=== PATIENT | male | born 1975 | race Hispanic/Latino ===

== ENCOUNTER 2022-08-12 10:45 | Day surgery (SDC) | payer BC ==
[2022-08-12] VITALS (12 sets, daily range): BP systolic 114–157; BP diastolic 76–91
[~2022-08-12] VITALS: Ht 177.8 cm; Wt 120.2 kg
[2022-08-12] MEDS ORDERED: LIDOCAINE PF 100MG/5ML (2%) SYRINGE 5ML ONE (12:02)
[2022-08-12] MEDS ORDERED: SUCCINYLCHOLINE CHLORIDE 20 MG/ML 10 ML VIAL ONE (12:02)
[2022-08-12] MEDS ORDERED: MIDAZOLAM HCL 1 MG/ML 2ML VIAL ONE (12:02)
[2022-08-12] MEDS ORDERED: ONDANSETRON 4MG INJ ONE (12:02)
[2022-08-12] MEDS ORDERED: DEXAMETHASONE SOD PHOSPHATE 10MG/ML 1ML VIAL ONE (12:02)
[2022-08-12] MEDS ORDERED: NEOSTIGMINE 5MG/5ML SYR IV ONE (12:03)
[2022-08-12] MEDS ORDERED: PROPOFOL 10 MG/ML 20ML VIAL IV ONE ×2 (12:03→13:09)
[2022-08-12] MEDS ORDERED: GLYCOPYRROLATE 1 MG/5 ML SYRINGE ONE (12:03)
[2022-08-12] MEDS ORDERED: FENTANYL CITRATE PF 50 MCG/1 ML 2ML VIAL ONE (12:03)
[2022-08-12] MEDS ORDERED: ROCURONIUM 10MG/1ML SYR 10 MG/ML ML ONE (12:03)
[2022-08-12] MEDS ORDERED: IOHEXOL 350 MG/ML 100ML INFUS..BTL IV ONE (12:07)
[2022-08-12] MEDS ORDERED: MEPERIDINE-PF 50 MG/ML SYG ONE (13:44)
[2022-08-12] MEDS ORDERED: KETOROLAC 30MG VIAL (30MG/ML) ONE (14:06)
[2022-08-12] MEDS ORDERED: MEPERIDINE-PF 25 MG/ML SYG ONE (14:24)
== END 2022-08-12 14:20 | disposition home or self-care (01) ==
LOC: DAH 10:45
PROVIDERS: ATTEND Internal Medicine
DX: R93.2 Abnormal findings on diagnostic imaging of liver and biliary tract (principal); Z20.822 Contact with and (suspected) exposure to COVID-19; K80.50 Calculus of bile duct without cholangitis or cholecystitis without obstruction; K83.8 Other specified diseases of biliary tract; F17.200 Nicotine dependence, unspecified, uncomplicated; Z90.49 Acquired absence of other specified parts of digestive tract; Z98.84 Bariatric surgery status; Z72.89 Other problems related to lifestyle
CPT/HCPCS: 87426; 43262; 43275; 43264; 43273; 74328; J3010; J3490; J1100; J2710; J0330; J2001; J2250; J2704 ×2; J2405; J1885; J2175 ×2; Q9967; C1769; C1773; 74330